=== PATIENT | male | born 1955 | race Caucasian/White ===

== ENCOUNTER 2017-11-06 16:07 | Emergency (ER) | payer OTHER ==
--- NOTE | 2017-11-06 16:30 | ED Physician Documentation ---
General Adult - HISTORIAN Historian: patient, spouse - HPI Stated Complaint: dog bite Chief Complaint: General Adult Further Comments: yes (62 year old male patient presents with dog bite to right forearm. Patient was bit by neighbor's dog who lives next door. Dog is kept inside, mixed breed, 1 month behind on shots.) - ROS CONST: no problems EYES/ENT: none CVS/RESP: none GI/: none MS/SKIN/LYMPH: none NEURO/PSYCH: denies: headache, fainting, dizziness, tingling, numbness, difficulty walking, difficulty with speech, anxiety, depression, other - PAST HX Past History: none Surgeries/Procedures: cholecystectomy (last Thursday) Allergies/Adverse Reactions: Allergies Allergy/AdvReac Type Severity Reaction Status Date / Time No Known Allergies Allergy Unverified 11/06/17 16:23 Home Medications: Ambulatory Orders Medication Instructions Recorded Amoxicillin/Potassium Clav 1 each PO BID #20 tablet 11/06/17 [Augmentin 875Mg/125Mg] - SOCIAL HX Smoking History: non-smoker - FAMILY HX Family History: No - VITAL SIGNS Vital Signs: Vital Signs Temp Pulse Resp BP Pulse Ox 106 H 16 137/92 98 11/06/17 16:18 11/06/17 16:18 11/06/17 16:18 11/06/17 16:18 - REVIEWED ASSESSMENTS Nursing Assessment Reviewed: Yes Vitals Reviewed: Yes Progress - Progress Progress: Discussed rabies injections. Dog is being quarantined for next 10 day. Risk and benefits explained, questions answered. Patient does not want to start injections at this time. ED Results Lab/Radiology - Orders Orders: ED Orders Category Date Time Status Cleanse with NS and Chlorhexid 1T Care 11/06/17 16:27 Ordered Diph,Pertuss(Acell),Tet Vac/Pf [Adacel] Med 11/06/17 16:27 Once 0.5 ml IM .ONCE ONE General Adult Physical Exam - PHYSICAL EXAM GENERAL APPEARANCE: [id number] N EENT: eye inspection normal, HIRAL RESPIRATORY: no resp distress, chest non-tender, breath sounds normal CVS: reg rate & rhythm, heart sounds normal, equal pulses, no murmur, no gallop , PMI nml, no JVD, no friction rub, 24 ABDOMEN: soft, no organomegaly, normal bowel sounds, no abdominal bruit, no distension SKIN: warm/dry, normal color, other (right forearm with 2 puncture wounds) EXTREMITIES: non-tender, normal range of motion, no evidence of injury, no edema , J, [employer] NEURO: oriented X3, CN's nml as tested, motor nml, sensation nml, mood/affect nml Discharge Clincal Impression: Dog bite of arm Qualifiers: Encounter type: initial encounter Laterality: right Qualified Code(s): S41.151A - Open bite of right upper arm, initial encounter; W54.0XXA - Bitten by dog, initial encounter; W54.0XXA - Bitten by dog, initial encounter Prescriptions: Amoxicillin/Potassium Clav [Augmentin 875Mg/125Mg] 1 each PO BID #20 tablet Referrals: Abdirizak Mustafa MD [Primary Care Provider] - 2 Days Additional Instructions: Clean wound twice a day Apply thin coat of antibiotic ointment and cover with bandage. [employer] supervisor your antibiotic and start it today If the dog shows signs of aggressive behavior or rabies, you need to be seen by your PCP immediately. Condition: Stable Disposition: 01 HOME, SELF-CARE Decision to Admit: NO Decision Time: 16:28
[2017-11-06] MEDS: DIPH,PERTUSS(ACELL),TET VAC/PF 0.5 ML DISP.SYRIN IM ONE (17:37)
[2017-11-06 17:41] VITALS: BP 132/82
== END 2017-11-06 16:33 | disposition home or self-care (01) ==
LOC: ED 16:07
DX: S41.151A Open bite of right upper arm, initial encounter (principal); W54.0XXA Bitten by dog, initial encounter; Y92.89 Other specified places as the place of occurrence of the external cause; Y93.9 Activity, unspecified; Y99.9 Unspecified external cause status
CPT/HCPCS: 90471; 90715; 99282; 99283